=== PATIENT | female | born 1935 | race Caucasian/White ===

== ENCOUNTER 2018-11-25 10:45 | Inpatient (IN) | payer MEDICARE, OTHER ==
--- NOTE | 2018-11-25 11:30 | RAD ---
RIGHT HIP 2 VIEWS: Date: 11/25/18 HISTORY: Fall, right hip pain. FINDINGS/IMPRESSION: There is an intertrochanteric fracture involving the right proximal femur with associated foreshorten ing. POS: DAVIN
[2018-11-25 12:10] LABS: #Lymphocytes 0.8 thou/uL (1.20-3.40); #Monocytes 0.8 thou/uL (0.11-0.59); #Neutrophils 11.3 thou/uL (1.40-6.50); %Eosinophils 0.2 % (0.0-10.0); %Lymphocytes 5.9 % (21.0-51.0); %Monocytes 6.1 % (0.0-10.0); %Neutrophils 87.8 % (42.0-75.0); Hemoglobin 12.7 g/dL (12.0-16.0); Mean Corpuscular HGB CONC 34.4 g/dL (32.0-36.0); Mean Corpuscular Hemoglobin 31.4 pg (27.0-31.0); Mean Corpuscular Volume 91.3 fL (78.0-98.0); Mean Platelet Volume 8.8 fL (7.4-10.4); Platelet Count 189 thou/uL (130-400); Red Blood Cell (RBC) Count 4.03 mill/uL (4.20-5.40); White Blood Cell (WBC) Count 12.9 thou/uL (4.8-10.8)
--- NOTE | 2018-11-25 12:14 | RAD ---
CHEST 1 VIEW: Date: 11/25/18 HISTORY: Fall. COMPARISON: 05/25/10 study. FINDINGS: Heart size within normal limits. Aorta tortuous. Lungs are clear of any infiltrative process. There i s some questionable subtle deformity to the right posterior 6th rib. It may possibly represent an occ ult fracture. There is a healed fracture also slightly more laterally seen in this rib. IMPRESSION: Questionable acute right posterior 6th rib fracture. If indicated, rib films are suggested. The bones are diffusely demineralized. POS: TPC
--- NOTE | 2018-11-25 12:15 | RAD ---
RIGHT FEMUR 2 VIEWS: Date: 11/25/18 HISTORY: Fall. FINDINGS: There is an intertrochanteric fracture of the right hip with coxa vara deformity. The bones appear de mineralized. IMPRESSION: Intertrochanteric fracture of the right hip. POS: T[facility]
[2018-11-25 12:18] LABS: INR-International Normal Ratio 1.1; PTT 29.4 SEC (22.9-36.1); Prothrombin Time 14.1 SEC (12.0-14.7)
[2018-11-25 12:33] LABS: ALT (SGPT) 23 U/L (8-55); AST (SGOT) 30 U/L (5-34); Albumin 3.9 g/dL (3.4-4.8); Alkaline Phosphatase 50 U/L (40-110); Anion Gap 15 mmol/L (10-20); BUN (Urea Nitrogen) 16 mg/dL (9.8-20.1); Bilirubin, Total 0.6 mg/dL (0.2-1.2); CK (CPK) 555 U/L (29-168); Calc. Creatinine Clearance 0 mL/min (70-130); Calcium 9.1 mg/dL (7.8-10.44); Carbon Dioxide 22 mmol/L (23-31); Chloride 106 mmol/L (98-107); Estimated GFR-MDRD 59; Globulin 2.8 g/dL (2.4-3.5); Glucose 167 mg/dL (83-110); Potassium 3.8 mmol/L (3.5-5.1); Protein, Total 6.7 g/dL (6.0-8.3); Sodium 139 mmol/L (136-145)
[2018-11-25] MEDS ORDERED: Ondansetron PF 4 MG/2 ML Vial IVP PRN ×2 (13:49→21:23)
[2018-11-25] MEDS ORDERED: Dextrose 50% Abboject 50 ML SYRINGE SLOW IVP PRN ×2 (13:49→21:21)
[2018-11-25] MEDS ORDERED: Dextrose 5% in Water 1,000 ML IV PRN ×2 (13:49→21:21)
[2018-11-25] MEDS ORDERED: Ondansetron ODT 4 MG TAB PO PRN ×2 (13:49→21:22)
[2018-11-25] MEDS ORDERED: Morphine 2 MG/ML SYRINGE SLOW IVP PRN (13:49)
[2018-11-25] MEDS ORDERED: Acetaminophen 1,000 MG in Premix Bag 1 BAG IVPB SCH (13:49)
[2018-11-25] MEDS ORDERED: Fentanyl 100 MCG/2 ML VIAL ONE (14:03)
--- NOTE | 2018-11-25 14:16 | HP ---
REQUESTING PHYSICIAN: Andrew Zarate DO CONSULTATIONS: Orthopedics, Dr. Plunkett. HISTORY OF PRESENT ILLNESS: The patient is an 83-year-old female with severe dementia and previous stroke, who reportedly had a ground level falls during this past week, most significantly yesterday. This morning, it was noted by her occupational therapist that the patient was having an extreme pain in her right hip. They advised that the patient be brought to the emergency department, where she was brought by ground EMS, and she underwent evaluation and examination, was noted to have a right hip fracture, at which time we were asked to evaluate the patient for admission and obtain Orthopedic consultation. ALLERGIES: NONE. CURRENT MEDICATIONS: 1. Aspirin. 2. Crosby Thyroid. 3. . 4. Quetiapine. 5. Namenda. 6. . 7. Amlodipine-atorvastatin. 8. Vitamin D3. PAST MEDICAL HISTORY: Alzheimer's, CVA at age 30, and "multiple" mini strokes since then. PAST SURGICAL HISTORY: Hysterectomy, left hip replacement. SOCIAL HISTORY: The patient lives with her spouse at home. Has other family members nearby her neighbors. The patient denies drug, tobacco, or alcohol use. REVIEW OF SYSTEMS: Ten-point review of systems is negative as otherwise stated. PHYSICAL EXAMINATION: VITAL SIGNS: Blood pressure is 131/81, heart rate is 86, respirations are 18, oxygen saturation is 96% on room air, and temperature is 98.4. GENERAL: The patient is resting comfortably in bed. Didi Coma Scale is 11 at E4, V2, M5. HEENT: Head is normocephalic. The patient has a contusion noted to the right side of her forehead and right supraorbital area with small ecchymosis. Pupils are equal and reactive. The patient does not follow my finger to check extraocular motion, but it does appear intact in general. Ears are atraumatic without discharge. Nose is atraumatic without discharge. Oropharynx is clear. NECK: Appears nontender. Trachea is midline. No JVD. CHEST: Clear to auscultation with moderate inspiratory and expiratory effort. Again, the patient does not follow commands. HEART: Regular rate and rhythm. ABDOMEN: Soft, nondistended with active bowel sounds. PELVIS: Stable with tenderness to palpation to right hip consistent with her fracture. EXTREMITIES: Right lower extremity is shortened and externally rotated. Cap refill in all extremities is less than 3 seconds. Pulses are 1+ to 2+. BACK: By report is atraumatic and nontender. LABORATORY FINDINGS: White blood cell count 12.9, hemoglobin 12.7, hematocrit 36.8, platelets 189. Sodium 139, potassium 3.8, chloride 106, CO2 of 22, BUN 16, creatinine 0.91, glucose 167. LFTs are unremarkable. Troponin is less than 0.010. Creatine kinase is 555. Lactic acid 3.7, PT 14, INR 1.1, PTT 29. RADIOGRAPHIC REPORTS: AP chest x-ray shows a questionable acute right posterior sixth rib fracture. Views of the right hip show an intertrochanteric femur fracture of the proximal femur. Views of the right femur again shows a right hip intertrochanteric fracture. ASSESSMENT/PLAN: 1. Status post ground level fall with remote presentation. 2. Right hip fracture. 3. Forehead contusion, CT pending. 4. Lactic acidosis. 5. Mild rhabdomyolysis. 6. History of significant dementia. 7. History of previous cerebrovascular accident. PLAN: Plan will be to admit the patient to the surgical floor after her CT evaluation. The patient will have pulmonary toilet, gastritis, and mechanical VTE prophylaxis. We will do IV hydration. Repeat labs later this afternoon and then again in the morning will make her n.p.o. after midnight with plans to go to the operating room with Orthopedics unless something changes. The evaluation, examination, laboratory, and radiographic findings will be discussed with Dr. Maldonado after this dictation. Job ID: [id number]
--- NOTE | 2018-11-25 14:21 | CT ---
CT CERVICAL SPINE WITH CORONAL AND SAGITTAL REFORMATIONS: HISTORY: Fall. Neck pain FINDINGS: Multilevel degenerative changes are present in the cervical spine. There is minimal anterolisthesis o f C2 over C3 vertebrae. No acute fracture, dislocation or facet malalignment is identified.
--- NOTE | 2018-11-25 14:28 | CT ---
CT BRAIN WITHOUT CONTRAST: HISTORY:Fall. Alzheimer's disease COMPARISON:09/24/2011 FINDINGS: There are foci of decreased attenuation in the periventricular white matter, consistent with chronic small vessel ischemic disease. There are old infarcts in the left occipital, right temporal occipital lobes, cerebellar hemispheres and the left thalamus. No evidence of acute infarct, hemorrhage, midline shift or abnormal extra-axial fluid collections is seen. The ventricular size is appropriate and the basilar cisterns are patent. The bony calvarium is intact. The visualized paranasal sinuses and mastoid air cells are well aerated. IMPRESSION: No CT evidence of acute intracranial process.
[2018-11-25 14:58] LABS: Bilirubin Negative (Negative); Blood, Urine Negative (Negative); Clarity Clear (Clear); Glucose, Urine (Dipstick) Normal (Negative); Leukocyte Negative Leu/uL (Negative); Nitrite Negative (Negative); Protein, Urine (Dipstick) 30 mg/dL (Neg-Trace); RBC/HPF 0-3 HPF (0-3); Squamous Epithelial 0-3 HPF (0-3); WBC/HPF 0-3 HPF (0-3)
[2018-11-25 15:06] LABS: Bacteria/HPF None Seen HPF (None Seen); Mucous/LPF 2+ LPF (<2+)
[2018-11-25] MEDS ORDERED: CEFAZOLIN 2 GM in Premix Bag 1 BAG IVPB SCH ×2 (16:30→21:30)
[2018-11-25] MEDS ORDERED: Acetaminophen 500 MG TAB PO SCH (18:00)
--- NOTE | 2018-11-25 18:32 | CON ---
DATE OF CONSULTATION: 11/25/2018 REQUESTING PHYSICIAN: Wilberto Maldonado DO CONSULTING PHYSICIAN: Sathya Plunkett MD REASON FOR CONSULTATION: Right hip intertrochanteric fracture. BRIEF CLINICAL HISTORY: Jami is an 83-year-old female, who was brought to [facility] via EMS after she sustained a ground-level fall yesterday evening. She was unable to stand and walk this morning. Therefore, EMS brought the patient to the hospital where the Trauma team evaluated and discovered a right hip intertrochanteric fracture. She was admitted to the Trauma team and we have been asked to evaluate for definitive orthopedic management of this fracture. PAST MEDICAL HISTORY: Significant for hypothyroidism, hypertension, dementia of Alzheimer's type. PAST SURGICAL HISTORY: Hysterectomy and left total hip arthroplasty. MEDICATIONS: Please see medication reconciliation form. PHYSICAL EXAMINATION: GENERAL: This is an elderly female, appearing her stated age, in no apparent distress, but a little uncomfortable. EXTREMITIES: Visual inspection of right lower extremity demonstrates shortening and external rotation of the right hip. Provocative and concordant pain is noted with palpation in the right groin. She is neurovascularly intact in the right lower extremity. A little bit of bruising is noted at the buttock on the right. IMAGING STUDIES: Two views of right hip demonstrate a comminuted right hip intertrochanteric fracture with shortening and varus angulation. IMPRESSION: 1. Right hip intertrochanteric fracture. 2. Dementia. 3. Hypertension. 4. Hypothyroidism. PLAN: 1. The risks, benefits, options, alternatives, and rationale for proceeding with a right hip closed reduction with intramedullary nail versus dynamic hip screw fixation has been explained in great detail to the patient and the family, who accompany her and they are ready to proceed. All questions were answered. No guarantee of outcome stated or implied. 2. Please see orders. Job ID: [id number]
[2018-11-25 19:26] VITALS: BMI 21.2
[2018-11-25] MEDS: Sodium Chloride 0.9% 1,000 ML IV SCH ×2 (20:10→22:54)
[2018-11-25] MEDS: Ketorolac Tromethamine 30 MG/ML VIAL IVP SCH (21:31)
[2018-11-25] MEDS ORDERED: Ketorolac Tromethamine 30 MG/ML VIAL IVP SCH (22:00)
--- NOTE | 2018-11-26 01:24 | PRG ---
DATE OF SERVICE: 11/25/2018 SUBJECTIVE: The patient was seen this evening during rounds. She was resting comfortably and asleep at the time of my evaluation. Nursing reported no acute events. OBJECTIVE: VITAL SIGNS: Temperature 97.7, pulse 89, respirations 16, oxygen saturation 97% on room air, blood pressure 112/74. GENERAL: Well-appearing elderly female, lying in bed with no signs of acute distress. PULMONARY: Equal chest rise and fall. No signs of acute respiratory distress. ASSESSMENT: 1. Status post multiple recent falls. 2. Right intertrochanteric femur fracture. 3. Forehead contusion. 4. Elevated CK and lactic acid. 5. History of CVA, Alzheimer's disease, and multiple mini strokes. PLAN: The patient is n.p.o. at midnight for surgical fixation of the right intertrochanteric femur fracture by Ortho. Med rec was evaluated and medications were restarted as indicated. We will hold her home aspirin for now. Postoperatively, the patient will likely need placement in acute rehab facility. She will work with Physical and Occupational Therapy starting as early as tomorrow. Job ID: [id number]
[2018-11-26] MEDS: Acetaminophen 500 MG TAB PO SCH ×5 (02:02→23:14)
[2018-11-26] MEDS: Ketorolac Tromethamine 30 MG/ML VIAL IVP SCH ×3 (05:54→20:45)
[2018-11-26 07:49] LABS: #Eosinphils 0.1 thou/uL (0.0-0.7); #Lymphocytes 1.7 thou/uL (1.20-3.40); #Neutrophils 7.9 thou/uL (1.40-6.50); %Basophils 0.2 % (0.0-1.0); %Eosinophils 0.5 % (0.0-10.0); %Lymphocytes 15.9 % (21.0-51.0); %Neutrophils 74.4 % (42.0-75.0); Hemoglobin 9.9 g/dL (12.0-16.0); Mean Corpuscular HGB CONC 34.4 g/dL (32.0-36.0); Mean Corpuscular Hemoglobin 30.8 pg (27.0-31.0); Mean Corpuscular Volume 89.4 fL (78.0-98.0); Mean Platelet Volume 8.7 fL (7.4-10.4); Platelet Count 166 thou/uL (130-400); RBC Distribution Width 11.9 % (11.5-14.5); Red Blood Cell (RBC) Count 3.23 mill/uL (4.20-5.40); White Blood Cell (WBC) Count 10.6 thou/uL (4.8-10.8)
[2018-11-26 08:08] LABS: Anion Gap 10 mmol/L (10-20); BUN (Urea Nitrogen) 12 mg/dL (9.8-20.1); Calc. Creatinine Clearance 53 mL/min (70-130); Carbon Dioxide 24 mmol/L (23-31); Chloride 111 mmol/L (98-107); Estimated GFR-MDRD 81; Glucose 94 mg/dL (83-110); Phosphorus 2.3 mg/dL (2.3-4.7); Potassium 3.5 mmol/L (3.5-5.1); Sodium 141 mmol/L (136-145)
[2018-11-26 08:47] LABS: Lactic Acid 3.2 mmol/L (0.5-2.2)
[2018-11-26] MEDS: Morphine 2 MG/ML SYRINGE SLOW IVP PRN ×3 (08:51→17:09)
[2018-11-26] MEDS ORDERED: Donepezil HCl 10 MG TAB PO SCH ×2 (09:00→15:00)
[2018-11-26] MEDS ORDERED: Prevnar 13-Val Conj/PF 0.5 ML SYRINGE IM ONE ×2 (09:00)
[2018-11-26] MEDS ORDERED: Fentanyl 100 MCG/2 ML VIAL ONE ×2 (10:46→12:54)
[2018-11-26] MEDS ORDERED: Phenylephrine HCL 10 MG/ML VIAL ONE (10:47)
[2018-11-26] MEDS ORDERED: Ondansetron HCl/PF 4 MG/2 ML Vial IVP PRN (11:59)
[2018-11-26] MEDS ORDERED: Promethazine HCl 25 MG/ML VIAL SLOW IVP PRN (11:59)
[2018-11-26] MEDS ORDERED: Promethazine HCl 25 MG/ML VIAL IM PRN (11:59)
--- NOTE | 2018-11-26 12:16 | PRG ---
DATE OF SERVICE: 11/26/2018 SUBJECTIVE: The patient is hospital day 2. She is on the surgical floor. She is status post ground level fall, for which she presented to the Emergency Department and was found to have right intertrochanteric femur fracture. According to the family, the patient has also had multiple other falls, increasing recently. She does have a history of CVA and significant Alzheimer's and multiple mini strokes. The patient is primarily nonverbal. Overnight, there were no reported issues. The patient did have some pain. This morning, it caused some agitation, but after 2 mg of morphine, the patient appeared more comfortable. OBJECTIVE: VITAL SIGNS: Temperature is 97.6, heart rate 84, blood pressure 126/62, respirations 16, and oxygen saturation 99% on room air. GENERAL: The patient is resting comfortably in bed. She is awake and appears at her baseline. Family members agree that this is her baseline. LUNGS: Clear to auscultation with moderate inspiratory and expiratory effort. HEART: Regular rate and rhythm. ABDOMEN: Soft, flat, and nontender with active bowel sounds. EXTREMITIES: Neurovascularly intact x4. LABORATORY FINDINGS: White blood cell count 10.6, hemoglobin 9.9, hematocrit 28.9, and platelets 166. Sodium 141, potassium 3.5, chloride 111, CO2 of 24, BUN 12, creatinine 0.69, glucose 94, magnesium 2.0, phosphorus 2.3, and lactic acid 3.2. Creatine kinase 515. There are no radiographs to review this morning. ASSESSMENT: 1. Status post ground level fall, with a reported history of multiple previous falls. 2. Right intertrochanteric femur fracture, awaiting surgery. 3. Forehead contusion, stable. 4. Elevated CK and lactic acid, normal vital signs and good urinary output. 5. History of cerebrovascular accident, Alzheimer disease, and multiple mini strokes. PLAN: Plan will be to continue supportive care. Postoperatively, we will begin physical and occupational therapy. Resume her diet and discuss placement at that time. Job ID: [id number]
[2018-11-26] MEDS: Thyroid 60 MG TAB PO SCH (14:07)
[2018-11-26] MEDS: Sodium Chloride 0.9% 1,000 ML IV SCH (14:12)
[2018-11-26] MEDS: Amlodipine 5 MG TAB PO SCH (14:13)
--- NOTE | 2018-11-26 16:26 | RAD ---
RIGHT HIP TWO VIEWS: 11/26/18 HISTORY: Intraoperative films. These show a Rodriguez compression screw and side plate stabilizing the intertrochanteric fracture in place. IMPRESSION: Stabilization of the intertrochanteric fracture. POS: TPC
--- NOTE | 2018-11-26 17:52 | OP ---
DATE OF PROCEDURE: 11/26/2018 OPERATION PERFORMED: Right proximal femur dynamic hip screw and sideplate. PREOPERATIVE DIAGNOSIS: Right intertrochanteric femur fracture. POSTOPERATIVE DIAGNOSIS: Right intertrochanteric femur fracture. COMPLICATIONS: None. ANESTHESIA: General. VACUUM CLEANER ASSEMBLER: Valentin Bautista. ESTIMATED BLOOD LOSS: 150 mL. IMPLANT: Synthes 3-hole DHS. INDICATIONS: Ms. Sorensen is an 83-year-old female, who fell. She fractured her right proximal femur. She was indicated for dynamic hip screw fixation to restore anatomic alignment and promote healing and alleviate pain. Risks have been reviewed. These do include infection, nonunion, fracture fixation failure, DVT, PE, and others. DESCRIPTION OF PROCEDURE: Ms. Sorensen was identified in the preoperative holding area. Her correct extremity was marked. She was carried to the operating room. She was positioned supine. General anesthesia was induced. A multidisciplinary time-out was performed. The right lower extremity was prepped and draped in sterile fashion. We began the procedure by reducing the hip using intraoperative x-rays and traction. We pulled traction and rotated the hip back into its anatomic position. At this point, we made an incision over the thigh laterally. We dissected down through the subcutaneous tissues to the fascia, which was opened. We then worked down to the bony level. At this point, we applied our 135-degrees angle guide. We inserted a guide pin into the centered position of the femoral head. At this point, we overdrilled the guidewire. We then placed our 90-mm central screw. We impacted the sideplate and placed 3 screws over the plate. This completed fixation. We took final x-ray images in orthogonal planes. There were no complications. At this point, we thoroughly irrigated and closed. The fascia was closed with 0 Vicryl suture followed by 2-0 Vicryl suture and melania for the skin. A sterile dressing was applied. The patient was taken to the recovery room at this point in good condition. Job ID: [id number]
[2018-11-26] MEDS: traMADol HCl 50 MG TAB PO SCH ×2 (18:48→23:14)
[2018-11-26] MEDS: CEFAZOLIN 2 GM in Premix Bag 1 BAG IVPB SCH (18:48)
[2018-11-26] MEDS: Atorvastatin Calcium 10 MG TAB PO SCH (20:46)
--- NOTE | 2018-11-26 22:38 | PRG ---
DATE OF SERVICE: 11/26/2018 SUBJECTIVE: The patient was seen today during the evening rounds. She was resting comfortably and asleep at the time of my evaluation. She is postop after fixation of her right intertrochanteric femur fracture. OBJECTIVE: VITAL SIGNS: Temperature 98, pulse 86, respirations 16, oxygen saturation 94% on room air, blood pressure 95/52. GENERAL: Well-appearing elderly female, lying in bed, asleep, with no signs of acute distress. PULMONARY: Equal chest rise and fall. No signs of acute respiratory distress. ASSESSMENT: 1. Status post mechanical fall from standing, multiple recent falls. 2. Right intertrochanteric femur fracture status post repair, postop day zero. 3. Forehead contusion, stable. 4. Elevated CK and lactic acid, improving. 5. History of cerebrovascular accident, multiple mini strokes, and Alzheimer disease. PLAN: Continue supportive care. Continue physical and occupational therapy. Continue home medications as previously prescribed. We will start p.o. aspirin tomorrow 81 mg b.i.d. for chemo DVT prophylaxis. The patient will need placement at a rehab facility or senior living facility. Job ID: [id number]
[2018-11-27] MEDS: CEFAZOLIN 2 GM in Premix Bag 1 BAG IVPB SCH (02:21)
[2018-11-27] MEDS: Morphine 2 MG/ML SYRINGE SLOW IVP PRN ×2 (04:37→18:34)
[2018-11-27] MEDS: Acetaminophen 500 MG TAB PO SCH ×4 (05:21→20:16)
[2018-11-27] MEDS: traMADol HCl 50 MG TAB PO SCH ×4 (05:22→20:16)
[2018-11-27] MEDS: Ketorolac Tromethamine 30 MG/ML VIAL IVP SCH ×3 (05:29→23:01)
[2018-11-27 06:36] LABS: #Eosinphils 0.1 thou/uL (0.0-0.7); #Lymphocytes 1.3 thou/uL (1.20-3.40); #Monocytes 0.7 thou/uL (0.11-0.59); %Basophils 0.2 % (0.0-1.0); %Eosinophils 0.8 % (0.0-10.0); %Lymphocytes 11.5 % (21.0-51.0); %Monocytes 6.5 % (0.0-10.0); Mean Corpuscular HGB CONC 34.1 g/dL (32.0-36.0); Mean Corpuscular Hemoglobin 30.7 pg (27.0-31.0); Mean Corpuscular Volume 90.1 fL (78.0-98.0); Mean Platelet Volume 9.5 fL (7.4-10.4); Platelet Count 126 thou/uL (130-400); RBC Distribution Width 11.9 % (11.5-14.5); Red Blood Cell (RBC) Count 2.93 mill/uL (4.20-5.40); White Blood Cell (WBC) Count 11.1 thou/uL (4.8-10.8)
[2018-11-27 06:39] LABS: Lactic Acid 1.2 mmol/L (0.5-2.2)
[2018-11-27 07:00] LABS: Anion Gap 9 mmol/L (10-20); BUN (Urea Nitrogen) 10 mg/dL (9.8-20.1); Calc. Creatinine Clearance 61 mL/min (70-130); Calcium 7.8 mg/dL (7.8-10.44); Carbon Dioxide 24 mmol/L (23-31); Chloride 109 mmol/L (98-107); Estimated GFR-MDRD Greater than 90; Glucose 113 mg/dL (83-110); Magnesium 1.9 mg/dL (1.6-2.6); Phosphorus 2.6 mg/dL (2.3-4.7); Potassium 3.9 mmol/L (3.5-5.1); Sodium 138 mmol/L (136-145)
[2018-11-27] MEDS: Amlodipine 5 MG TAB PO SCH (08:33)
[2018-11-27] MEDS: Donepezil HCl 10 MG TAB PO SCH (08:33)
[2018-11-27] MEDS: Thyroid 60 MG TAB PO SCH (08:35)
--- NOTE | 2018-11-27 17:28 | PRG ---
DATE OF SERVICE: 11/27/2018 SUBJECTIVE: The patient remains on the surgical floor. She is postop day 1, status post right proximal femur dynamic hip screw and sideplate for a right intertrochanteric femur fracture. The patient had no issues overnight. This morning, she did have some agitation that appears to have been related to pain. Again, the patient is nonverbal. She did work with therapy today, primarily sitting on the side of the bed. There were just again communication issues that prevented them from progressing much farther than that today. The patient is tolerating a diet, and after pain med adjustment, it appears that she is now more comfortable. OBJECTIVE: VITAL SIGNS: Temperature is 97.7, heart rate 102, blood pressure 139/81, respirations 14, oxygen saturation is 96% on room air. GENERAL: The patient is resting in bed. She has just been put back to bed from her therapy session. She appears at baseline and family agrees with this. LUNGS: Clear to auscultation bilaterally. HEART: Regular rate and rhythm. ABDOMEN: Soft, flat with active bowel sounds. EXTREMITIES: Neurovascularly intact x4. Postop dressing is clean, dry, and intact. LABORATORY FINDINGS: White blood cell count 11.1, hemoglobin 9.0, hematocrit 26.4, platelets 126. Sodium 138, potassium 3.9, chloride 109, CO2 of 24, BUN 10, creatinine 0.60, glucose 113, magnesium 1.9, and phosphorus 2.6. IMAGING STUDIES: There are no radiographs reviewed this morning. ASSESSMENT AND PLAN: 1. Status post ground level fall with history of recent increased number of falls. 2. Status post open reduction and internal fixation, right intertrochanteric femur fracture. 3. Forehead contusion, stable. 4. Elevated CK and lactic acid, improved. 5. History of CVA, Alzheimer disease, and multiple mini strokes. PLAN: Plan will be to continue supportive care. I had a lengthy discussion with and other family members today regarding the patient's placement. Most likely, she is suitable for a long-term facility and would likely benefit from snf care after that. At this time, she does not appear to be a good inpatient rehab candidate. The family will visit some long-term facilities this weekend and let us know which location they choose. Job ID: [id number]
[2018-11-27] MEDS: Aspirin 81 mg Enteric Coated Tablet PO SCH (20:16)
[2018-11-27] MEDS: Atorvastatin Calcium 10 MG TAB PO SCH (20:16)
--- NOTE | 2018-11-28 00:03 | PRG ---
DATE OF SERVICE: 11/27/2018 SUBJECTIVE: The patient was seen this evening, lying in bed and asleep. At the time of my evening rounds, she had no signs of acute distress. Nursing reported no acute events during the day. OBJECTIVE: VITAL SIGNS: Temperature 98.2, pulse 88, respirations 16, oxygen saturation 99% on room air, blood pressure 104/59. GENERAL: Well-appearing elderly female, lying in bed with no signs of acute distress. PULMONARY: Equal chest rise and fall. No signs of acute respiratory distress. ASSESSMENT: 1. Status post mechanical fall from standing with history of increased falls. 2. Right intertrochanteric femur fracture, status post repair. 3. Forehead contusion, stable. 4. Elevated CK and lactic acid, improved. 5. History of cerebrovascular accident, Alzheimer disease, and multiple mini strokes. PLAN: We will continue supportive care as well as physical and occupational therapies. The patient is pending assisted facility. The Day Team did speak with the family and recommended that they consider placing the patient in a long-term care facility eventually. Speech was also consulted to see the patient to make further diet recommendations. Job ID: [id number]
[2018-11-28] MEDS: Acetaminophen 500 MG TAB PO SCH ×4 (03:57→20:27)
[2018-11-28] MEDS: traMADol HCl 50 MG TAB PO SCH ×4 (03:57→20:25)
[2018-11-28] MEDS: Ketorolac Tromethamine 30 MG/ML VIAL IVP SCH ×3 (05:43→21:54)
[2018-11-28 05:50] LABS: Anion Gap 7 mmol/L (10-20); BUN (Urea Nitrogen) 12 mg/dL (9.8-20.1); Calc. Creatinine Clearance 63 mL/min (70-130); Calcium 7.9 mg/dL (7.8-10.44); Carbon Dioxide 27 mmol/L (23-31); Chloride 107 mmol/L (98-107); Estimated GFR-MDRD Greater than 90; Glucose 110 mg/dL (83-110); Phosphorus 2.4 mg/dL (2.3-4.7); Potassium 3.3 mmol/L (3.5-5.1); Sodium 138 mmol/L (136-145)
[2018-11-28] MEDS: Aspirin 81 mg Enteric Coated Tablet PO SCH ×2 (09:02→20:27)
[2018-11-28] MEDS: Thyroid 60 MG TAB PO SCH (09:02)
[2018-11-28] MEDS: Donepezil HCl 10 MG TAB PO SCH (09:03)
[2018-11-28] MEDS: Amlodipine 5 MG TAB PO SCH (09:04)
[2018-11-28] MEDS ORDERED: Potassium Phosphate 30 MMOL in Sodium Chloride 0.9% 500 ML IVPB SCH (10:00)
--- NOTE | 2018-11-28 17:03 | PRG ---
DATE OF SERVICE: 11/28/2018 SUBJECTIVE: The patient remains on the surgical floor. The patient is postop day #2, status post right proximal femur, dynamic hip screw and sideplate for a right intertrochanteric femur fracture. The patient currently denies any pain and is tolerating a regular diet. OBJECTIVE: VITAL SIGNS: Pulse 85, blood pressure 118/65, respirations 16, SpO2 of 99% on room air, temperature 98. GENERAL: Elderly female, resting comfortably in bed, in no acute distress. LUNGS: Equal chest rise and fall, no respiratory distress. HEART: Regular rate, regular rhythm. ABDOMEN: Soft, nontender, nondistended. EXTREMITIES: Moves all extremities, neurovascularly intact x4. Postop dressing to right hip is clean, dry, and intact. LABORATORY DATA: Sodium 138, potassium 3.3, chloride 107, BUN 12, creatinine 0.58, estimated GFR greater than 90, glucose 110, calcium 7.9, phosphorus 2.4, magnesium 2.0. DIAGNOSTIC STUDIES: There is no diagnostics to review this morning. ASSESSMENT: 1. Status post ground level fall with history of recent increased number of falls. 2. Postop day #2 open reduction and internal fixation right intertrochanteric femur fracture. 3. Forehead contusion, stable. 4. Elevated CK and lactic acid, improved. 5. Hypokalemia. 6. History of cerebrovascular accident, Alzheimer disease, multiple mini strokes. PLAN: Continue supportive care. Continue pain regimen. Continue regular diet as tolerated. We will replace electrolytes. We will repeat a BMP to follow electrolytes. The plan was discussed with the patient and family who agree. The patient is pending placement to a detention facility. Job ID: [id number] [facility]
[2018-11-28] MEDS: Atorvastatin Calcium 10 MG TAB PO SCH (20:27)
--- NOTE | 2018-11-29 00:49 | PRG ---
DATE OF SERVICE: 11/29/2018 SUBJECTIVE: The patient was seen this evening, lying in bed and resting comfortably and asleep. She had no signs of acute distress and nursing reported no acute events. OBJECTIVE: VITAL SIGNS: Temperature 98.8, pulse 96, respirations 18, oxygen saturation 96% on room air, and blood pressure 134/71. GENERAL: Well-appearing elderly female, lying in bed with no signs of acute distress. PULMONARY: Equal chest rise and fall. No signs of acute respiratory distress. ASSESSMENT: 1. Status post mechanical fall with multiple recent falls. 2. Right intertrochanteric femur fracture, status post repair. 3. Forehead contusion, stable. 4. Increased CK and lactic acid, resolved. 5. History of cerebrovascular accident - nonverbal, alzheimer disease and multiple mini strokes. PLAN: Continue current diet and pain regimen. Continue physical and occupational therapy as well as supportive care. SNF is pending at this time. Job ID: [id number]
[2018-11-29] MEDS: Acetaminophen 500 MG TAB PO SCH ×4 (02:21→20:22)
[2018-11-29] MEDS: traMADol HCl 50 MG TAB PO SCH ×4 (02:22→20:22)
--- NOTE | 2018-11-29 03:06 | EKG ---
Test Reason : HIP FX Blood Pressure : / mmHG Vent. Rate : 100 BPM Atrial Rate : 100 BPM P-R Int : 170 ms QRS Dur : 086 ms QT Int : 364 ms P-R-T Axes : 048 -62 083 degrees QTc Int : 469 ms Normal sinus rhythm Left anterior fascicular block Abnormal ECG Confirmed by HO HOGAN D.O. ([id number]), copy editor RADHA MERCADO ([id number]) on 11/29/2018 3:05:16 AM Referred By: EDISON Confirmed By:HO HOGAN D.O.
[2018-11-29] MEDS: Ketorolac Tromethamine 30 MG/ML VIAL IVP SCH ×2 (05:14→14:59)
[2018-11-29 07:08] LABS: Anion Gap 9 mmol/L (10-20); BUN (Urea Nitrogen) 9 mg/dL (9.8-20.1); Calc. Creatinine Clearance 65 mL/min (70-130); Calcium 8.2 mg/dL (7.8-10.44); Carbon Dioxide 28 mmol/L (23-31); Chloride 108 mmol/L (98-107); Estimated GFR-MDRD Greater than 90; Glucose 90 mg/dL (83-110); Magnesium 2.1 mg/dL (1.6-2.6); Potassium 3.4 mmol/L (3.5-5.1); Sodium 142 mmol/L (136-145)
[2018-11-29 07:18] LABS: Phosphorus 3.8 mg/dL (2.3-4.7)
[2018-11-29] MEDS ORDERED: Potassium Phosphate 30 MMOL in Sodium Chloride 0.9% 500 ML IVPB SCH (08:00)
[2018-11-29 09:42] LABS: #Eosinphils 0.4 thou/uL (0.0-0.7); #Lymphocytes 1.3 thou/uL (1.20-3.40); #Monocytes 0.5 thou/uL (0.11-0.59); #Neutrophils 5.6 thou/uL (1.40-6.50); %Basophils 0.4 % (0.0-1.0); %Eosinophils 4.7 % (0.0-10.0); %Lymphocytes 16.8 % (21.0-51.0); %Monocytes 6.2 % (0.0-10.0); %Neutrophils 71.9 % (42.0-75.0); Hemoglobin 9.5 g/dL (12.0-16.0); Mean Corpuscular Hemoglobin 30.9 pg (27.0-31.0); Mean Corpuscular Volume 93.6 fL (78.0-98.0); Mean Platelet Volume 8.2 fL (7.4-10.4); Platelet Count 264 thou/uL (130-400); RBC Distribution Width 11.9 % (11.5-14.5); Red Blood Cell (RBC) Count 3.07 mill/uL (4.20-5.40); White Blood Cell (WBC) Count 7.9 thou/uL (4.8-10.8)
[2018-11-29] MEDS: Aspirin 81 mg Enteric Coated Tablet PO SCH ×2 (09:50→20:22)
[2018-11-29] MEDS: Donepezil HCl 10 MG TAB PO SCH (09:51)
[2018-11-29] MEDS: Amlodipine 5 MG TAB PO SCH (09:53)
[2018-11-29] MEDS: Thyroid 60 MG TAB PO SCH (09:53)
--- NOTE | 2018-11-29 15:23 | PRG ---
DATE OF SERVICE: 11/29/2018 SUBJECTIVE: The patient remains on the surgical floor. The patient is postop day #3 status post right proximal femur, dynamic screw and sideplate. The patient had no overnight events. The patient's pain has been well controlled. The patient was able to sleep well last night. The patient continues to tolerate a regular diet. The patient is currently ambulating with physical therapy at this time. OBJECTIVE: VITAL SIGNS: Temperature 97.5, pulse 88, respirations 16, SpO2 of 98% on room air, and blood pressure 148/84. GENERAL: Elderly female, pleasantly confused, in no acute distress. LUNGS: Equal chest rise and fall, no respiratory distress. CARDIAC: Regular rate. Regular rhythm. EXTREMITIES: Moves all extremities. Neurovascularly intact x4. Postop dressing to right hip is clean, dry, and intact. LABORATORY DATA: WBC 7.9, RBC 3.07, hemoglobin 9.5, and hematocrit 28.7. Sodium 142, potassium 3.4, chloride 108, BUN 9, creatinine 0.56, estimated GFR greater than 90, glucose 90, calcium 8.2, phosphorus 3.8, and magnesium 2.1. IMPRESSION: 1. Status post ground level fall with history of recent increased number of falls. 2. Postop day number 3, open reduction and internal fixation right intertrochanteric hip fracture. 3. Forehead contusion, stable. 4. Elevated CK and lactic acid, improved. 5. Hypokalemia. 6. History of cerebrovascular accident, Alzheimer disease, and multiple mini strokes. PLAN: Continue supportive care. Continue pain regimen. Continue regular diet as tolerated. Replace electrolytes as needed. Continue to have the patient work with physical and occupational therapy. The patient is pending placement to prison facility. The plan was discussed with the patient and family, who agree. Job ID: [id number]
[2018-11-29] MEDS: Atorvastatin Calcium 10 MG TAB PO SCH (20:22)
--- NOTE | 2018-11-29 23:01 | PRG ---
DATE OF SERVICE: 11/29/2018 SUBJECTIVE: The patient was seen this evening, resting in bed comfortably, and asleep with no signs of acute distress. The patient reported no acute events during the day. OBJECTIVE: VITAL SIGNS: Temperature 99, pulse 100, respirations 18, oxygen saturation 98% on room air, and blood pressure 139/71. GENERAL: Well-appearing elderly female, lying in bed with no signs of acute distress. PULMONARY: Equal chest rise and fall. No signs of acute respiratory distress. ASSESSMENT: 1. Status post fall, multiple recent falls. 2. Right intertrochanteric femur fracture, status post repair. 3. Forehead contusion, stable. 4. Increase CK and lactic acid, stable. 5. History of cerebrovascular accident (non-verbal, Alzheimer disease, and multiple mini strokes). PLAN: Continue current diet and pain regimen. Continue physical and occupational therapy as well as supportive care. Pending placement at a snf facility. Job ID: [id number]
[2018-11-30] MEDS: traMADol HCl 50 MG TAB PO SCH ×4 (03:57→21:09)
[2018-11-30] MEDS: Acetaminophen 500 MG TAB PO SCH ×4 (03:57→21:09)
[2018-11-30 05:57] LABS: Magnesium 1.8 mg/dL (1.6-2.6); Phosphorus 2.9 mg/dL (2.3-4.7); Potassium 3.6 mmol/L (3.5-5.1)
[2018-11-30] MEDS: Amlodipine 5 MG TAB PO SCH (09:33)
[2018-11-30] MEDS: Thyroid 60 MG TAB PO SCH (09:34)
[2018-11-30] MEDS: Aspirin 81 mg Enteric Coated Tablet PO SCH ×2 (09:34→21:09)
[2018-11-30] MEDS: Donepezil HCl 10 MG TAB PO SCH (09:34)
--- NOTE | 2018-11-30 14:06 | PRG ---
DATE OF SERVICE: 11/30/2018 SUBJECTIVE: The patient remains on the surgical floor. The patient is postop day #4, status post right proximal femur, dynamic screw and sideplate. The patient had no overnight events. The patient's pain continues to be well controlled at this time. The patient is currently resting, in no acute distress in the hospital bed. The patient's family is at bedside. The patient continues to tolerate a regular diet at this time. OBJECTIVE: VITAL SIGNS: Temperature 98.3, pulse 88, respirations 20, SpO2 of 98% on room air, blood pressure 128/65. GENERAL: Elderly female, pleasantly confused, in no acute distress. LUNGS: Equal chest rise and fall, no respiratory distress. CARDIAC: Regular rate, regular rhythm. EXTREMITIES: Moves all extremities, neurovascularly intact x4. Postop dressing clean, dry, and intact. LABORATORY DATA: Potassium 3.6, phosphorus 2.9, magnesium 1.8. DIAGNOSTICS: There is no diagnostics to review today. IMPRESSION: 1. Status post ground level fall with history of recent increased number of falls. 2. Postop day #4 open reduction and internal fixation of right intertrochanteric hip fracture. 3. Forehead contusion, stable. 4. Elevated CK and lactic acid, improved. 5. Hypokalemia, improved. 6. History of cerebrovascular accident, Alzheimer disease, multiple mini strokes. PLAN: Continue supportive care. Continue diet as tolerated. Continue to have patient work with physical and occupational therapy. The patient is pending placement to [place]. The plan has been discussed with the family and patient who agrees. The patient was examined by Dr. Maldonado during morning rounds. Job ID: [id number]
[2018-11-30] MEDS: Atorvastatin Calcium 10 MG TAB PO SCH (21:09)
--- NOTE | 2018-12-01 00:57 | PRG ---
DATE OF SERVICE: 11/30/2018 SUBJECTIVE: Patient was seen this evening during rounds, resting comfortably and asleep. She had no signs of acute distress. OBJECTIVE: VITAL SIGNS: Temperature 98.7, pulse 97, respirations 16, oxygen saturation 96% on room air, blood pressure 128/62. GENERAL: Well-appearing elderly female, lying in bed with no signs of acute distress. PULMONARY: Equal chest rise and fall. No signs of acute respiratory distress. ASSESSMENT: 1. Multiple recent falls. 2. Right intertrochanteric femur fracture, status post repair. 3. Forehead contusion, stable. 4. Elevated CK and lactic acid, resolving. 5. History of CVA, Alzheimer's disease, and multiple mini strokes. PLAN: Continue supportive care and regular diet. Continue current pain regimen and home medications. Continue physical and occupational therapy. She is pending placement at a snf facility at [place]. She is ready for discharge at this time. Job ID: [id number]
[2018-12-01] MEDS: traMADol HCl 50 MG TAB PO SCH ×3 (02:59→15:15)
[2018-12-01] MEDS: Acetaminophen 500 MG TAB PO SCH ×3 (02:59→15:15)
[2018-12-01] MEDS: Donepezil HCl 10 MG TAB PO SCH (09:09)
[2018-12-01] MEDS: Aspirin 81 mg Enteric Coated Tablet PO SCH (09:09)
[2018-12-01] MEDS: Amlodipine 5 MG TAB PO SCH (09:12)
[2018-12-01] MEDS: Thyroid 60 MG TAB PO SCH (09:12)
--- NOTE | 2018-12-01 12:13 | PRG ---
DATE OF SERVICE: 12/01/2018 SUBJECTIVE: The patient was seen and examined this morning on rounds. She is resting comfortably in bed. No acute signs of distress. Appears to be at her baseline mentation. and family were in room, stated the patient did not have any acute events overnight and is now on a regular schedule of feeding and using the restroom and is doing well overall. The patient is voiding without difficulty and having multiple bowel movements. Tolerating a regular diet without any nausea or vomiting. Pain appears to be well controlled. Family is pursuing placement at [facility]; however, the patient was denied this morning. Thus, Case Management will rediscuss discharge placement plans with the patient's family for other placement options. OBJECTIVE: VITAL SIGNS: Temperature 97.9, pulse 78, blood pressure 115/56, respiratory rate 16, and O2 saturation 95% on room air. GENERAL: Elderly female, pleasantly confused, in no acute distress, resting comfortably in bed. LUNGS: Equal and symmetric chest rise and fall. No acute respiratory distress or increased work of breathing. EXTREMITIES: Moves all extremities. Neurovascularly intact x4. Postop dressing clean, dry, and intact over right lower extremity. IMPRESSION: 1. Status post ground level fall with history of recent increased number of falls. 2. Status post open reduction and internal fixation of right intertrochanteric hip fracture, postop day #5. 3. Forehead contusion, stable. 4. Elevated CK and lactic acid, resolved. 5. Hypokalemia, resolved. 6. History of CVA, severe Alzheimer's dementia, and multiple mini strokes. PLAN: Continue supportive care. Continue diet as tolerated. We will continue to have Physical and Occupational Therapy work with the patient to increase functional level We will continue home medication regimen. The patient was denied at [place], thus Case Management will discuss with the patient's family on other placement options, appreciate assistance. Medically stable and pending placement. The patient was seen and examined by Dr. Maldonado on morning rounds. The above plan was discussed with patient's family at bedside, who voiced agreement, understanding. All questions were answered appropriately. Job ID: [id number] MTDD
[2018-12-01 16:51] VITALS: BP 143/69; TEMP 97
--- NOTE | 2018-12-02 04:10 | DIS ---
DATE OF ADMISSION: 11/25/2018 DATE OF DISCHARGE: 12/01/2018 CONSULTS: Dr. Sathya Plunkett, Orthopedic Surgery. PROCEDURES: 1. Right proximal femur dynamic hip screw and sideplate placement for right intertrochanteric femur fracture. 2. Right hip x-ray on 11/25/2018 demonstrating intertrochanteric fracture involving the right proximal hip with associated foreshortening. 3. Chest x-ray on 11/25/2018 demonstrating questionable acute right posterior 6th rib fracture. Bones are diffusely demineralized. 4. Right femur x-ray on 11/25/2018 demonstrating intertrochanteric fracture of the right hip. 5. Brain CT on 11/25/2018 demonstrating no evidence of acute intracranial process. 6. Cervical spine CT on 11/25/2018 demonstrating multilevel degenerative changes present in the cervical spine. Minimal anterolisthesis of C2 over C3 vertebrae. No acute fracture, dislocation, or facet malalignment identified. 7. Hip x-ray on 11/26/2018 demonstrating intraoperative films showing stabilization of the intertrochanteric fracture. PRIMARY DIAGNOSES: 1. Status post ground level fall with history of recent increased number of falls. 2. Status post open reduction and internal fixation of the right intertrochanteric hip fracture, postop day #5 at time of discharge. 3. Forehead contusion, stable. SECONDARY DIAGNOSES: 1. Elevated CK and lactic acid, resolved. 2. Hypokalemia, resolved. 3. History of CVA. 4. Severe Alzheimer's dementia. 5. Multiple TIAs DISCHARGE MEDICATIONS: 1. Tramadol 50 mg p.o. q.6 hours p.r.n. 2. Aspirin 81 mg p.o. b.i.d. 3. Tylenol 1000 mg p.o. q.6 hours p.r.n. 4. Vitamin D3 at 1000 units p.o. daily. 5. Donepezil 10 mg p.o. daily. 6. Seroquel 25 mg p.o. t.i.d. 7. Raloxifene 60 mg p.o. daily. 8. [place] Thyroid 60 mg p.o. daily. 9. Amlodipine/atorvastatin 5-10 mg p.o. daily. 10. Aspirin 81 mg p.o. daily. 11. Namenda XR 28 mg p.o. daily. DISCONTINUED MEDICATIONS: None. HISTORY OF PRESENT ILLNESS AND HOSPITAL COURSE: The patient is a pleasant 83-year-old female with severe dementia and previous stroke, who reportedly had multiple ground level falls during this past week with the most significant on the day prior to admission. On the morning of admission, she was noted by her occupational therapist that she is having significant pain of her right hip and was advised to come to the emergency department for further evaluation. In the ED, she underwent evaluation and examination, was noted to have a right hip fracture as noted above. Trauma Team was asked to evaluate the patient for admission and obtain orthopedic consultation. The patient was admitted to the surgical floor, started on IV fluid hydration. GI prophylaxis and mechanical VTE prophylaxis. The patient was made n.p.o. at midnight for planned orthopedic intervention. Initial lab work showed a hemoglobin of 12.7, white count of 12.9, a creatinine of 0.91, a CPK of 555, and a lactic acid of 3.7, this trended down to 3.0 and ultimately trended down to 1.2. Her CPK trended down to 515. Troponins were negative. Electrolytes stable. On hospital day #1, the patient was taken to the OR in stable condition by Dr. Plunkett for open reduction and internal fixation of her right intertrochanteric femur fracture. The patient tolerated the procedure well and was transported back to the floor in a stable condition. Postoperatively, patient was started on aspirin b.i.d. for DVT prophylaxis. PT, OT were consulted to assist with therapy. The patient's home medications were restarted for her chronic medical conditions. The patient tolerated p.o. well. Voiding and stool without difficulty. Appeared to be at her baseline mentation per family. Case management was consulted to assist with placement options. After discussion with family, it was decided that we would pursue placement at [facility], however, patient was declined. The patient was then accepted to [facility] custodial. putty worker met with patient and and daughters and family who were agreeable or transferred to [facility] for continuation of physical, occupational, and speech therapy. At the time of discharge, the patient was stable, at her baseline mentation. She is tolerating p.o. well, voiding and stooling without difficulty. Vital signs stable and on her chronic medications for chronic medical conditions. Discharge plan was discussed with the patient's family at bedside, they voiced agreement in understanding of the discharge plan. All questions were answered. The patient was then discharged to [facility] at [place]. DISPOSITION: Stable. DISCHARGE INSTRUCTIONS: 1. [place] [facility] [place]. 2. Diet: Heart healthy. 3. Activity: Orthopedic limitations, weightbearing as tolerated. 4. Followup: The patient is to follow up with Dr. Plunkett within 14 days of discharge as well as Dr. Jacob, their primary care provider, within 7 days of discharge. Job ID: [id number] MTDD
== END 2018-12-01 16:49 | DRG 481 ==
LOC: ERS 10:45 → SURG A 13:19 → ERS 17:52
PROVIDERS: ADMIT Surgery; ATTEND Surgery
PROC: 0QS604Z Reposition Right Upper Femur with Internal Fixation Device, Open Approach (ICD-10-PCS; principal; 2018-11-26)
DX: S72.141A Displaced intertrochanteric fracture of right femur, initial encounter for closed fracture (principal); E87.2 Acidosis; M62.82 Rhabdomyolysis; G30.9 Alzheimer's disease, unspecified; F02.80 Dementia in other diseases classified elsewhere, unspecified severity, without behavioral disturbance, psychotic disturbance, mood disturbance, and anxiety; Z96.642 Presence of left artificial hip joint; S00.83XA Contusion of other part of head, initial encounter; W18.30XA Fall on same level, unspecified, initial encounter; E03.9 Hypothyroidism, unspecified; E87.6 Hypokalemia; Z86.73 Personal history of transient ischemic attack (TIA), and cerebral infarction without residual deficits; Z79.82 Long term (current) use of aspirin; Z79.899 Other long term (current) drug therapy; Z90.710 Acquired absence of both cervix and uterus
CPT/HCPCS: 36415; 51702; 70450; 71045; 72125; 76000; 80048; 80053; 81003; 81015; 82550; 83605; 83735; 84100; 84132; 84484; 85025; 85610; 85730; 87086; 93005; 96374; C1713; C1769; J0690; J1885; J2270; J2370; J3010; J7050